=== PATIENT | female | born 1955 | race African-American/Black ===

== ENCOUNTER 2017-11-25 12:49 | Day surgery (SDC) | payer MEDICARE, MEDICAID ==
[2017-11-24 10:07] VITALS: BMI 54.9
--- NOTE | 2017-11-25 18:35 | OP ---
DATE OF PROCEDURE: 11/25/2017 PROCEDURE PERFORMED: Colonoscopy with biopsy. PREPROCEDURE DIAGNOSES: 1. History of ascending colon cancer, status post right colon resection in 12/2012. 2. Chronic diarrhea. POSTPROCEDURE DIAGNOSES: 1. Exam to ileocolonic anastomosis, good bowel preparation. 2. Mild diffuse diverticulosis coli. 3. Intact-appearing ileocolonic anastomosis with no evidence of tumor recurrence or polyps. 4. No obvious colitis, biopsies obtained in the transverse colon for histopathology. 5. Small internal hemorrhoids. 6. Otherwise normal colonoscopy. PROCEDURE IN DETAIL: Written informed consent was obtained. The patient was brought to the endoscop y suite. Total intravenous anesthesia was provided by Gustabo Eldridge CRNA. The patient was placed in the left lateral decubitus position. A digital rectal exam was performed that was unremarkable. A P entax video colonoscope was inserted through the anal canal and advanced under direct visualization t o the anastomosis. The quality of the bowel preparation was good. Each colon segment was examined c arefully as the colonoscope was slowly withdrawn from the anastomosis. Occasional diverticular orifi quincy were noted throughout the colon, with no evidence of bleeding or infection. The ileocolonic anas tomosis appeared intact with no evidence of tumor recurrence or polyp. No ulcer or friability was no margaret at the anastomosis. Random biopsies were obtained in the transverse colon for histology given th e patient's history of diarrhea. In the rectum, a retroflexed view demonstrated small internal hemor rhoids that were not actively bleeding. The colon was decompressed as the colonoscope was removed fr om the patient. She was transferred to the day stay surgery area for post-procedure monitoring. The re were no immediate complications. RECOMMENDATIONS: 1. Await pathology results. 2. Ask the patient to call me in 1 week for pathology results. 3. Resume Eliquis today. 4. Trial of cholestyramine, half a scoop in water q.a.m. as needed for diarrhea. 5. Follow up in GI clinic in 3-4 weeks. 6. Repeat colonoscopy in 2 years.
== END 2017-11-25 15:50 | disposition home or self-care (01) ==
LOC: SDC 12:49
PROVIDERS: ATTEND Internal Medicine Gastroenterology
PROC: 0DBL8ZX Excision of Transverse Colon, Via Natural or Artificial Opening Endoscopic, Diagnostic (ICD-10-PCS; principal; 2017-11-25)
DX: K57.30 Diverticulosis of large intestine without perforation or abscess without bleeding (principal); K64.8 Other hemorrhoids; K52.9 Noninfective gastroenteritis and colitis, unspecified; I48.91 Unspecified atrial fibrillation; E11.9 Type 2 diabetes mellitus without complications; G47.30 Sleep apnea, unspecified; J45.909 Unspecified asthma, uncomplicated; I10 Essential (primary) hypertension; G89.29 Other chronic pain; M54.9 Dorsalgia, unspecified; E66.01 Morbid (severe) obesity due to excess calories; Z68.42 Body mass index [BMI] 45.0-49.9, adult; Z87.891 Personal history of nicotine dependence; Z85.038 Personal history of other malignant neoplasm of large intestine; Z90.49 Acquired absence of other specified parts of digestive tract; Z79.01 Long term (current) use of anticoagulants; Z79.84 Long term (current) use of oral hypoglycemic drugs; Z79.899 Other long term (current) drug therapy; Z88.0 Allergy status to penicillin; Z91.040 Latex allergy status
CPT/HCPCS: 88305

== ENCOUNTER 2018-04-07 14:36 | Emergency (ER) | payer MEDICARE, MEDICAID ==
[2018-04-07 16:26] LABS: #Eosinphils 0.2 thou/uL (0.0-0.7); #Lymphocytes 2.3 thou/uL (1.20-3.40); #Monocytes 0.5 thou/uL (0.11-0.59); #Neutrophils 5.3 thou/uL (1.40-6.50); %Basophils 0.5 % (0.0-1.0); %Eosinophils 1.9 % (0.0-10.0); %Lymphocytes 27.2 % (21.0-51.0); %Monocytes 6.3 % (0.0-10.0); %Neutrophils 64.1 % (42.0-75.0); Hemoglobin 11.9 g/dL (12.0-16.0); Mean Corpuscular HGB CONC 32.2 g/dL (32.0-36.0); Mean Corpuscular Hemoglobin 28.9 pg (27.0-31.0); Mean Corpuscular Volume 89.7 fL (78.0-98.0); Mean Platelet Volume 9.8 fL (7.4-10.4); Platelet Count 183 thou/uL (130-400); RBC Distribution Width 13.8 % (11.5-14.5); Red Blood Cell (RBC) Count 4.11 mill/uL (4.20-5.40); White Blood Cell (WBC) Count 8.3 thou/uL (4.8-10.8)
--- NOTE | 2018-04-07 16:36 | RAD ---
PORTABLE CHEST: Date: 04/07/18 HISTORY: Chest pain. COMPARISON: 01/07/15. FINDINGS: Cardiomegaly. Mild vascular engorgement. Lung bases are poorly evaluated due to soft tissue attenuati on. The hemidiaphragms are not identified. I cannot exclude bibasilar infiltrates or consolidation. I cannot exclude effusions. IMPRESSION: Lung bases are poorly evaluated on this exam due to soft tissue attenuation. Recommend upright PA and lateral views of chest for better evaluation. POS: DANIELA
[2018-04-07 16:45] LABS: ALT (SGPT) 17 U/L (8-55); AST (SGOT) 11 U/L (5-34); Albumin 3.8 g/dL (3.4-4.8); Alkaline Phosphatase 124 U/L (40-150); Anion Gap 14 mmol/L (10-20); BUN (Urea Nitrogen) 14 mg/dL (9.8-20.1); Bilirubin, Total 0.5 mg/dL (0.2-1.2); Calc. Creatinine Clearance 0 mL/min (70-130); Calcium 9.1 mg/dL (7.8-10.44); Carbon Dioxide 24 mmol/L (23-31); Chloride 106 mmol/L (98-107); Estimated GFR-MDRD Greater than 90; Globulin 2.6 g/dL (2.4-3.5); Glucose 169 mg/dL (80-115); Lipase 37 U/L (8-78); Potassium 3.7 mmol/L (3.5-5.1); Protein, Total 6.4 g/dL (6.0-8.3); Sodium 140 mmol/L (136-145)
[2018-04-07 20:01] LABS: Troponin I Less than 0.010 ng/mL (< 0.028)
--- NOTE | 2018-04-09 21:59 | EKG ---
Test Reason : HIGH BP Blood Pressure : / mmHG Vent. Rate : 074 BPM Atrial Rate : 074 BPM P-R Int : 168 ms QRS Dur : 096 ms QT Int : 442 ms P-R-T Axes : 033 019 016 degrees QTc Int : 490 ms Poor data quality, interpretation may be adversely affected Normal sinus rhythm Prolonged QT Abnormal ECG Confirmed by JEEVAN GARCIAS DO ([id number]), manager editorial JOSEPH DIANE ([id number] on 04/09/2018 9:59:09 PM Referred By: KATERINE Confirmed By:JEEVAN GARCIAS DO
== END 2018-04-07 21:10 ==
LOC: ERS 14:36
DX: J45.901 Unspecified asthma with (acute) exacerbation (principal); I10 Essential (primary) hypertension; E11.9 Type 2 diabetes mellitus without complications; E66.9 Obesity, unspecified; Z79.899 Other long term (current) drug therapy; Z79.84 Long term (current) use of oral hypoglycemic drugs
CPT/HCPCS: 36415; 71045; 80053; 83690; 83880; 84484; 85025; 93005; 94640

== ENCOUNTER 2018-05-06 12:16 | Observation (INO) | payer MEDICARE, MEDICAID ==
[2018-05-06 13:01] LABS: #Eosinphils 0.1 thou/uL (0.0-0.7); #Lymphocytes 2.1 thou/uL (1.20-3.40); #Monocytes 0.3 thou/uL (0.11-0.59); #Neutrophils 4.6 thou/uL (1.40-6.50); %Basophils 0.2 % (0.0-1.0); %Eosinophils 1.6 % (0.0-10.0); %Lymphocytes 29.6 % (21.0-51.0); %Monocytes 4.7 % (0.0-10.0); Hemoglobin 13.2 g/dL (12.0-16.0); Mean Corpuscular HGB CONC 31.8 g/dL (32.0-36.0); Mean Corpuscular Hemoglobin 28.8 pg (27.0-31.0); Mean Corpuscular Volume 90.5 fL (78.0-98.0); Mean Platelet Volume 10.1 fL (7.4-10.4); Platelet Count 195 thou/uL (130-400); RBC Distribution Width 13.6 % (11.5-14.5); Red Blood Cell (RBC) Count 4.58 mill/uL (4.20-5.40); White Blood Cell (WBC) Count 7.1 thou/uL (4.8-10.8)
[2018-05-06] MEDS ORDERED: Aspirin Chewable 81 MG TAB ONE (13:01)
[2018-05-06] MEDS ORDERED: Nitroglycerin 2% Ointment 1 INCH/1 GM Packet ONE (13:01)
[2018-05-06 13:24] LABS: ALT (SGPT) 16 U/L (8-55); AST (SGOT) 13 U/L (5-34); Albumin 3.8 g/dL (3.4-4.8); Alkaline Phosphatase 140 U/L (40-150); Anion Gap 12 mmol/L (10-20); BUN (Urea Nitrogen) 10 mg/dL (9.8-20.1); Bilirubin, Total 0.5 mg/dL (0.2-1.2); Calc. Creatinine Clearance 0 mL/min (70-130); Calcium 9.4 mg/dL (7.8-10.44); Carbon Dioxide 24 mmol/L (23-31); Chloride 103 mmol/L (98-107); Estimated GFR-MDRD Greater than 90; Globulin 2.8 g/dL (2.4-3.5); Glucose 336 mg/dL (80-115); Lipase 27 U/L (8-78); Potassium 4.3 mmol/L (3.5-5.1); Protein, Total 6.6 g/dL (6.0-8.3); Sodium 135 mmol/L (136-145)
--- NOTE | 2018-05-06 13:56 | RAD ---
CHEST 1 VIEW: HISTORY: Chest pain. COMPARISON: 04/07/2018. FINDINGS: Cardiac silhouette is enlarged and upper limits of normal in size. Pulmonary vasculature is also upp er limits of normal. Mediastinum is midline with aortic calcification. No lobar consolidation or ev idence of pneumothorax. monitoring coordinator leads overlie the chest. IMPRESSION: Borderline cardiomegaly and pulmonary vascular congestion. Florid edema is not evident. Appearance has improved compared to the prior exam from 1 month ago. POS: DAVE
[2018-05-06] MEDS ORDERED: hydrALAZINE 20 MG/ML VIAL ONE (14:11)
[2018-05-06] MEDS ORDERED: Albuterol Sulfate 1.25 MG/3 ML NEB NEB PRN (15:00)
[2018-05-06 15:28] VITALS: BMI 53.1
[2018-05-06] MEDS ORDERED: Ondansetron PF 4 MG/2 ML Vial IVP PRN (15:52)
[2018-05-06] MEDS ORDERED: Ondansetron ODT 4 MG TAB SL PRN (15:52)
[2018-05-06] MEDS ORDERED: HumaLOG 300 UNITS/3 ML VIAL SC PRN (16:29)
[2018-05-06] MEDS ORDERED: Dextrose 50% Abboject 50 ML SYRINGE SLOW IVP PRN (16:29)
[2018-05-06] MEDS ORDERED: Dextrose 5% in Water 1,000 ML IV PRN (16:29)
[2018-05-06 17:15] LABS: Troponin I 0.014 ng/mL (< 0.028)
[2018-05-06] MEDS: HumaLOG 300 UNITS/3 ML VIAL SC PRN (17:15)
[2018-05-06] MEDS ORDERED: Ipratropium Bromide 2.5 ml Neb NEB PRN (19:00)
--- NOTE | 2018-05-06 19:27 | HP ---
PRIMARY CARE PHYSICIAN: Dr. Blu Casillas. CHIEF COMPLAINT: Chest pain. HISTORY OF PRESENT ILLNESS: Ms. Moraes is a pleasant 62-year-old female with a past medical history of diabetes mellitus; asthma; colon cancer, status post partial colectomy; atrial fibrillation; hypertension, who had presented to [facility] and accompanied by her after she had experienced chest pain that has been going on for the last 2 to 3 days. She states that she was scheduled for a tooth extraction today, therefore was placed on antibiotics last Wednesday and was told to hold her home dose of Eliquis for 5 days. She states that she was started on clindamycin by her dentist last Wednesday, she states chest pain started this week around Wednesday night. Due to her symptoms, she states that her dentist stopped clindamycin and switched to cephalexin. However, her chest pain continued. She states that this pain is pretty consistent. She also reports some shortness of breath more than usual. She states that she had recently seen her transit operations supervisor, Dr. Cardenas, and had undergone a stress test. However, she was not able to tell me the stress test results. She states that Dr. Cardenas told her that everything was stable and no further changes. Upon arriving to the emergency department, her initial workup included labs, CBC, BMP, which were found to be unremarkable. Glucose was found to be elevated at 336, however, troponin less than 0.010 and BNP 24.3. Lipase is normal at 27. She had been noted to be in normal sinus rhythm with heart rate of 81 with unifocal premature ventricular complexes. Chest x-ray shows cardiomegaly, mild congestive heart failure along with some chronic changes. Her blood pressure was noted to be elevated at 198/76, however, this was treated with IV hydralazine 20 mg. She was given oral aspirin 325 mg and topical nitro transdermal patch. She states that her chest pain had not changed. However, her blood pressure improved. It was determined that she would be admitted for her chest pain and hypertension. Under observation, Cardiology Services were consulted for further evaluation to seek medical records from her recent stress test. REVIEW OF SYSTEMS: CONSTITUTIONAL: She denies any fever or chills. Denies any night sweats, any recent weight loss or weight gain. HEENT: She does report a mild headache after nitro; however, denies any dizziness, sore throat, runny nose, or neck pain. PULMONARY: Does report some shortness of breath more than usual; however, denies any wheezing or cough. CARDIOVASCULAR: Does report some chest pain; however, denies any palpitations. GASTROINTESTINAL: Denies any abdominal pain, but does report some nausea with no vomiting. She also does report some chronic diarrhea that she has had since her history of colon cancer and partial colectomy. She states she follows up with saw sharpener as outpatient. GENITOURINARY: Denies any urinary frequency, urgency, or hematuria. NEUROLOGIC: Denies any focal weakness, numbness, or tingling. PSYCHIATRIC: Denies any anxiety or depression. Denies any suicidal or homicidal ideation. PAST MEDICAL HISTORY: Significant for asthma, diabetes mellitus type 2, hyperlipidemia, hypertension, atrial fibrillation, and colon cancer. PAST SURGICAL HISTORY: She has had a hysterectomy, cholecystectomy, bilateral tubal ligation, and partial colectomy. ALLERGIES: PENICILLIN. SOCIAL HISTORY: She denies alcohol, tobacco, or illicit drug use. HOME MEDICATIONS: At this time: 1. Clonidine 0.1 mg p.o. b.i.d. 2. Tudorza 400 mcg inhalation daily. 3. Hydrocodone/acetaminophen ([place]) 7.5/325 mg one tablet p.o. q.6 hours p.r.n. pain. 4. Losartan 50 mg p.o. daily. 5. Isosorbide 60 mg p.o. daily. 6. Albuterol 1.25 mg nebulizer q.8 hours as needed shortness of breath. 7. Dexilant 60 mg p.o. daily. 8. Januvia 100 mg p.o. daily. 9. Lorazepam 100 mg p.o. at bedtime as needed for insomnia. 10. Apixaban 5 mg p.o. b.i.d. currently on hold for oral surgery. 11. Diltiazem 120 mg p.o. b.i.d. 12. Metformin 1000 mg p.o. daily. 13. Doxazosin 1 mg p.o. daily. 14. Amlodipine 5 mg p.o. daily. 15. Atorvastatin 20 mg p.o. daily. 16. Furosemide 40 mg p.o. daily. PHYSICAL EXAMINATION: VITAL SIGNS: Blood pressure 138/67, pulse 108, respirations 18, temperature 98.1 degrees Fahrenheit, O2 saturation 98% on room air. GENERAL: The patient is awake, alert, oriented, in mild acute distress noted due to chest pain. HEENT: Atraumatic, normocephalic. Pupils are round and reactive to light. Extraocular muscles intact. Oropharynx is clear without any erythema or exudates. Moist mucous membranes noted. NECK: Soft and supple. No adenopathy. No bruits. Trachea midline. LUNGS: Clear to auscultation bilaterally. No wheezing, rales, or rhonchi. CARDIOVASCULAR: Positive S1 and S2. Regular rate and rhythm. No murmurs, clicks, or rubs. ABDOMEN: Obese, soft. No tenderness to palpation. Nondistended. Bowel sounds present. EXTREMITIES: Trace edema. Strength 5+ bilaterally in upper and lower extremities. Pedal and radial pulses palpable. NEUROLOGIC: Cranial nerves 2 through 12 intact. No focal deficits noted. Gait not assessed. PSYCHIATRIC: Good mood and affect. LABORATORY DATA: WBC 7.1, RBC 4.58, hemoglobin 13.2, platelets 195. Sodium 135, potassium 4.3, anion gap 12, BUN 10, creatinine 0.76, estimated GFR greater than 90, glucose 336. Troponin less than 0.010. BNP 24.3. Lipase 27. DIAGNOSTIC IMAGING: Chest x-ray showed borderline cardiomegaly with pulmonary vascular congestion. It was noted that the appearance has improved compared to the prior exam from 1 month ago. ASSESSMENT AND PLAN: 1. Chest pain. We will consult Cardiology Services and obtain records of recent cardiac workup, which included stress test. Trend cardiac enzymes, continue on the patient's home regimen. We will place on Lovenox for anticoagulation at this time. We will make the patient n.p.o. at midnight for possible further workup in the a.m. per Cardiology. This also could likely be secondary to gastritis or worsening gastroesophageal reflux disease from recent clindamycin use, will place on IV Protonix twice daily. 2. Hypertension. Continue on the patient's home regimen. Add IV hydralazine for elevated systolic blood pressure greater than 170. Monitor vital signs closely. 3. Diabetes mellitus. Continue on inpatient regimen. Hold the patient's home metformin and place on insulin sliding scale with frequent Accu-Cheks. 4. Asthma likely causing her shortness of breath. We will place the patient on home regimen including DuoNeb treatments. 5. Hyperlipidemia. Continue home regimen. 6. History of partial colectomy and chronic diarrhea. The patient currently at baseline; however, we will closely monitor for any changes. 7. Deep venous thrombosis and gastrointestinal prophylaxis as above. 8. Code status is full code. DISPOSITION: Pending further workup and clinical findings. We will discuss case with Cardiology and obtain recent records of stress test. We will monitor patient overnight and further management pending her progress. Job ID: [id number]
[2018-05-06 20:17] LABS: Troponin I Less than 0.010 ng/mL (< 0.028)
[2018-05-06] MEDS: cloNIDine 0.1 MG TAB PO SCH (20:22)
[2018-05-06] MEDS: Acetaminophen 325 MG TAB PO PRN (20:23)
[2018-05-06] MEDS: Lorazepam 1 MG TAB PO PRN (20:27)
[2018-05-06] MEDS: Pantoprazole 40 MG VIAL IVP SCH (20:31)
[2018-05-07 05:04] LABS: #Eosinphils 0.2 thou/uL (0.0-0.7); #Lymphocytes 2.1 thou/uL (1.20-3.40); #Monocytes 0.5 thou/uL (0.11-0.59); #Neutrophils 3.8 thou/uL (1.40-6.50); %Basophils 0.3 % (0.0-1.0); %Eosinophils 2.5 % (0.0-10.0); %Lymphocytes 32.6 % (21.0-51.0); %Neutrophils 57.6 % (42.0-75.0); Mean Corpuscular HGB CONC 31.6 g/dL (32.0-36.0); Mean Corpuscular Hemoglobin 28.5 pg (27.0-31.0); Mean Corpuscular Volume 90.1 fL (78.0-98.0); Mean Platelet Volume 9.8 fL (7.4-10.4); Platelet Count 186 thou/uL (130-400); RBC Distribution Width 13.7 % (11.5-14.5); White Blood Cell (WBC) Count 6.5 thou/uL (4.8-10.8)
[2018-05-07 05:23] LABS: Anion Gap 13 mmol/L (10-20); BUN (Urea Nitrogen) 16 mg/dL (9.8-20.1); Calc. Creatinine Clearance 180 mL/min (70-130); Carbon Dioxide 24 mmol/L (23-31); Chloride 104 mmol/L (98-107); Estimated GFR-MDRD Greater than 90; Glucose 267 mg/dL (80-115); Sodium 137 mmol/L (136-145)
[2018-05-07] MEDS: Ondansetron ODT 4 MG TAB SL PRN ×3 (05:25→15:19)
[2018-05-07] MEDS: HumaLOG 300 UNITS/3 ML VIAL SC PRN (06:30)
[2018-05-07] MEDS: HYDROcodone/Acetaminophen 7.5/325 mg Tablet PO PRN ×2 (06:32→23:55)
[2018-05-07] MEDS ORDERED: metFORMIN 500 MG TAB PO SCH (09:00)
[2018-05-07] MEDS: Pantoprazole 40 MG VIAL IVP SCH ×2 (09:31→20:28)
--- NOTE | 2018-05-07 09:42 | PDOC.PN ---
- Subjective Encounter Start Date: 05/07/18 Encounter Start Time: 09:37 Patient lying in bed with at bedside. She denies chest pain and is not complaining of abdominal pain. She became nauseous after she ate breakfast that improved after zofran. She also reports itchign and discharge and believes she is developing a yeast infection. Cardiology records were reviewed, she had a stress test in 11/2017 which did not show any ischemia, EF 47%. Heart cath on 2017 showed EF 60% with normal coronaries. Troponin negative - Objective Resuscitation Status - Order Detail: 05/06/18 16:26 Resuscitation Status Routine Co-Sign Provider: Resuscitation Status: FULL: Full Resuscitation MAR Reviewed: Yes Vital Signs & Weight: Vital Signs (12 hours) Temp Pulse Resp BP Pulse Ox 05/07/18 07:05 98.9 F 75 20 146/81 H 94 L 05/07/18 04:25 98.3 F 76 18 127/58 L 93 L Weight Weight 300 lb 6 oz I&O: 05/06/18 05/07/18 05/08/18 06:59 06:59 06:59 Intake Total 300 Output Total 500 Balance -200 Result Diagrams: 05/07/18 04:24 05/07/18 04:24 Additional Labs: Accuchecks 05/07/18 05/06/18 05/06/18 06:19 20:29 16:59 POC Glucose 265 H 320 H 245 H Radiology Reviewed by me: Yes Phys Exam - Physical Examination Mild acute distress due to abdominal pain and nausea HEENT: PERRLA, moist MMs, oral pharynx no lesions Neck: no nodes, full ROM Respiratory: no wheezing, clear to auscultation bilateral Cardiovascular: RRR, no significant murmur Gastrointestinal: soft, positive bowel sounds Tenderness in left UQ Musculoskeletal: pulses present Neurological: non-focal, moves all 4 limbs Lymphatic: no nodes Psychiatric: normal affect, A&O x 3 Skin: no rash, cap refill <2 seconds Dx/Plan (1) Nausea Code(s): R11.0 - NAUSEA Status: Acute (2) Obesity, morbid, BMI 50 or higher Code(s): E66.01 - MORBID (SEVERE) OBESITY DUE TO EXCESS CALORIES Status: Acute (3) Type 2 diabetes mellitus Status: Acute (4) Asthma Code(s): J45.909 - UNSPECIFIED ASTHMA, UNCOMPLICATED Status: Chronic (5) Dyslipidemia Code(s): E78.5 - HYPERLIPIDEMIA, UNSPECIFIED Status: Chronic (6) Abdominal pain Code(s): R10.9 - UNSPECIFIED ABDOMINAL PAIN Status: Acute - Plan cont current plan of care, plan discussed w/ family, DVT proph w/lovenox * Continue PPI BID * Consult to GI Dr Perdomo * Cardiology records reviewed, Troponin negative x3, no further cardiac workup at this time * Continue home medications * Add diflucan * Continue zofran as needed
[2018-05-07] MEDS ORDERED: Fluconazole 100 MG TAB PO SCH (10:00)
[2018-05-07] MEDS: Enoxaparin Sodium 40 MG/0.4 ML SYRINGE SC SCH (11:27)
[2018-05-07] MEDS: Atorvastatin Calcium 20 MG TAB PO SCH (11:28)
[2018-05-07] MEDS: cloNIDine 0.1 MG TAB PO SCH ×2 (11:28→20:25)
[2018-05-07] MEDS: Furosemide 40 MG TAB PO SCH (11:28)
[2018-05-07] MEDS: Amlodipine 5 MG TAB PO SCH (11:28)
[2018-05-07] MEDS: Alogliptin 25 MG TAB PO SCH (11:28)
[2018-05-07] MEDS: Losartan 25 MG TAB PO SCH (11:29)
[2018-05-07] MEDS: Doxazosin Mesylate 1 MG TAB PO SCH (11:29)
--- NOTE | 2018-05-07 16:55 | CON ---
DATE OF CONSULTATION: 05/07/2018 CHIEF COMPLAINT: Chest pain and nausea. HISTORY OF PRESENT ILLNESS: Ms. Moraes is a 62-year-old woman, who started clindamycin in anticipation of getting her tooth pulled. She started that medication last Wednesday a week ago. Wednesday, she developed substernal cramping to pressure-like chest pain that radiated towards the left chest and the left upper quadrant. She then developed persistent nausea with that. She had no vomiting, but every time she eats, she gets nauseated. She has still been unable to keep food down. The pain does not significantly worsen with eating. She has had no hematemesis. No blood in the stool. She has had diarrhea with liquidy stools a couple times per day after meals. She had been worked up for diarrhea recently by Dr. Rivera and was started on cholestyramine with improvement. She has not been taking the cholestyramine since this pain started. She had a 2nd antibiotic earlier in the week, which I believe was cephalexin. She did notice to have some complaints of vaginal yeast infection this morning. She has been on Eliquis for history of atrial fibrillation. Her last dose was a week ago in anticipation of getting her tooth pulled. She never did make it to get her tooth pulled yesterday because she was admitted to the hospital instead with the chest pain. She has been on Dexilant 60 mg daily and has not had much heartburn otherwise on that medication. The chest pain has been worse at night when she lies down and will come and go, but can last for hours at a time. The nausea has been more persistent. Again, she has had no vomiting. PAST MEDICAL HISTORY: 1. Colon cancer status post right colon resection. 2. Asthma. 3. Diabetes mellitus, type 2. 4. Hyperlipidemia. 5. Hypertension. PAST SURGICAL HISTORY: 1. Right colon resection. 2. Hysterectomy. 3. Cholecystectomy. 4. Tubal ligation. FAMILY HISTORY: Negative for GI malignancies. SOCIAL HISTORY: No alcohol, tobacco, or drugs. ALLERGIES: PENICILLIN. MEDICATIONS: Currently as an inpatient, include; 1. Alogliptin. 2. Norvasc. 3. Lipitor. 4. Catapres. 5. Diltiazem. 6. Doxazosin. 7. Enoxaparin. 8. Furosemide. 9. Isosorbide mononitrate. 10. Losartan. 11. Pantoprazole 40 mg IV q.12 h. REVIEW OF SYSTEMS: Negative x10 systems reviewed except as stated in history of present illness. PHYSICAL EXAMINATION: VITAL SIGNS: Temperature is 97.4, pulse 75, and blood pressure 165/79. GENERAL: She is in no acute distress. Alert and oriented x3. She is obese. HEENT: Eyes have no scleral icterus. Oropharynx is clear without lesions. No cervical or supraclavicular lymphadenopathy. LUNGS: Clear to auscultation bilaterally. HEART: Regular rate and rhythm without murmur. ABDOMEN: Soft. She does not have significant tenderness to palpation; however, palpation in the epigastric region worsens her nausea. Her bowel sounds are present. EXTREMITIES: No lower extremity edema. LABORATORY DATA: White blood cell count 6.5, hemoglobin is 12.0, and platelets 186. INR 1.0. Creatinine 0.68, bilirubin 0.5, AST 13, ALT 16, alkaline phosphatase 140, albumin 3.8, and lipase 27. IMPRESSION: 1. Substernal to left-sided chest pain to left upper quadrant abdominal pain. This is associated with persistent nausea. This could be gastritis or peptic ulcer or reflux esophagitis; however, she has been on Dexilant 60 mg daily. These symptoms started after she started a course of clindamycin and it is possible that she has pill esophagitis or fungal esophagitis; however, she does not have true odynophagia. 2. History of atrial fibrillation, on Eliquis. Her last Eliquis dose was one week ago. RECOMMENDATIONS: 1. Continue proton pump inhibitor. 2. We will plan upper endoscopy tomorrow. Job ID: [id number]
[2018-05-07] MEDS: Acetaminophen 325 MG TAB PO PRN (20:26)
[2018-05-07] MEDS: Lorazepam 1 MG TAB PO PRN (23:55)
[2018-05-08 06:07] LABS: #Basophils 0.1 thou/uL (0.0-0.2); #Eosinphils 0.2 thou/uL (0.0-0.7); #Lymphocytes 2.2 thou/uL (1.20-3.40); #Monocytes 0.5 thou/uL (0.11-0.59); #Neutrophils 3.4 thou/uL (1.40-6.50); %Basophils 1.1 % (0.0-1.0); %Eosinophils 3.2 % (0.0-10.0); %Lymphocytes 34.6 % (21.0-51.0); %Monocytes 7.7 % (0.0-10.0); %Neutrophils 53.3 % (42.0-75.0); Hemoglobin 11.8 g/dL (12.0-16.0); Mean Corpuscular Hemoglobin 29.7 pg (27.0-31.0); Mean Corpuscular Volume 89.9 fL (78.0-98.0); Mean Platelet Volume 9.9 fL (7.4-10.4); Platelet Count 189 thou/uL (130-400); RBC Distribution Width 13.6 % (11.5-14.5); Red Blood Cell (RBC) Count 3.97 mill/uL (4.20-5.40); White Blood Cell (WBC) Count 6.4 thou/uL (4.8-10.8)
[2018-05-08 06:27] LABS: Anion Gap 11 mmol/L (10-20); BUN (Urea Nitrogen) 16 mg/dL (9.8-20.1); Calc. Creatinine Clearance 163 mL/min (70-130); Calcium 9.1 mg/dL (7.8-10.44); Carbon Dioxide 27 mmol/L (23-31); Chloride 103 mmol/L (98-107); Estimated GFR-MDRD Greater than 90; Glucose 258 mg/dL (80-115); Potassium 4.2 mmol/L (3.5-5.1); Sodium 137 mmol/L (136-145)
[2018-05-08] MEDS ORDERED: Fentanyl 100 MCG/2 ML VIAL ONE (10:38)
--- NOTE | 2018-05-08 12:46 | OP ---
DATE OF PROCEDURE: 05/08/2018 PROCEDURE PERFORMED: Esophagogastroduodenoscopy. PREOPERATIVE DIAGNOSES: Substernal to left-sided chest pain with nausea and some epigastric pain. DESCRIPTION OF PROCEDURE: Informed consent was obtained from the patient. She was sedated with total intravenous anesthesia. The bite block was placed and the endoscope was advanced easily to the second portion of the duodenum and retroflexion was performed in the stomach. The esophagus was normal. The Z-line was normal. There was a small 1 cm hiatal hernia from 40 to 39 cm. The stomach was normal including retroflexed views. The pylorus and first and second portions of the duodenum were normal. IMPRESSION: 1. Small 1 cm hiatal hernia. 2. Otherwise normal esophagogastroduodenoscopy. There was no pill esophagitis or fungal esophagitis or peptic ulcer to explain her symptoms. She might have just had an acute infectious gastroenteritis or viral gastroenteritis. Her liver tests and pancreatic enzymes were normal. We will proceed with symptomatic supportive care for now. RECOMMENDATIONS: 1. Proton pump inhibitor. 2. Advance diet. Job ID: [id number]
[2018-05-08] MEDS: Pantoprazole 40 MG VIAL IVP SCH (13:30)
[2018-05-08] MEDS: Atorvastatin Calcium 20 MG TAB PO SCH (13:30)
[2018-05-08] MEDS: cloNIDine 0.1 MG TAB PO SCH (13:30)
[2018-05-08] MEDS: Amlodipine 5 MG TAB PO SCH (13:30)
[2018-05-08] MEDS: Furosemide 40 MG TAB PO SCH (13:30)
[2018-05-08] MEDS: Enoxaparin Sodium 40 MG/0.4 ML SYRINGE SC SCH (13:30)
[2018-05-08] MEDS: Losartan 25 MG TAB PO SCH (13:30)
[2018-05-08] MEDS: Alogliptin 25 MG TAB PO SCH (14:14)
[2018-05-08] MEDS: Doxazosin Mesylate 1 MG TAB PO SCH (14:14)
[2018-05-08 16:18] VITALS: BP 121/60; TEMP 97.6
[2018-05-08] MEDS ORDERED: PROPOFOL 200 MG/20 ML VIAL ONE (16:18)
[2018-05-08] MEDS ORDERED: Lidocaine 1% PF 5 ML VIAL ONE (16:18)
== END 2018-05-08 16:38 | disposition home or self-care (01) ==
LOC: ERS 12:16 → 2SW 14:00
PROVIDERS: ADMIT Internal Medicine; ATTEND Internal Medicine
PROC: 0DJ08ZZ Inspection of Upper Intestinal Tract, Via Natural or Artificial Opening Endoscopic (ICD-10-PCS; principal; 2018-05-08)
DX: R07.89 Other chest pain (principal); K44.9 Diaphragmatic hernia without obstruction or gangrene; J45.909 Unspecified asthma, uncomplicated; I48.91 Unspecified atrial fibrillation; I11.0 Hypertensive heart disease with heart failure; I50.9 Heart failure, unspecified; E78.5 Hyperlipidemia, unspecified; K52.9 Noninfective gastroenteritis and colitis, unspecified; E66.01 Morbid (severe) obesity due to excess calories; Z68.43 Body mass index [BMI] 50.0-59.9, adult; Z85.038 Personal history of other malignant neoplasm of large intestine; Z79.01 Long term (current) use of anticoagulants; Z79.84 Long term (current) use of oral hypoglycemic drugs; Z79.899 Other long term (current) drug therapy; Z88.0 Allergy status to penicillin; Z90.49 Acquired absence of other specified parts of digestive tract
CPT/HCPCS: 43235; 71045; 80048 ×2; 80053; 82962 ×3; 83690; 83880; 84484 ×2; 85025 ×3; 93005; 94640; 96372 ×2; 96374; 96375; 96376; 97139 ×2; 99285; G0378 ×2; 36415; 36416; C9113; J0360; J1650; J2001; J2704; J3010; Q0162

== ENCOUNTER 2019-11-26 17:53 | Inpatient (IN) | payer MEDICARE, MEDICAID, OTHER ==
--- NOTE | 2019-11-26 19:04 | RAD ---
PORTABLE CHEST: Date: 11-26-2019 PROVIDED CLINICAL HISTORY: Chest pain. FINDINGS: Comparison is made with a study dated 05-06-2018. Cardiac and mediastinal silhouette is unchanged in appearance. No focal consolidation, pleural fluid or pneumothorax apparent. Evaluation is limited by patient body habitus. Vascular calcification is ag ain seen. IMPRESSION: No evidence for an acute cardiopulmonary process. POS: CARMITA
[2019-11-26 19:16] LABS: #Basophils 0.1 thou/uL (0.0-0.2); #Eosinphils 0.2 thou/uL (0.0-0.7); #Monocytes 0.6 thou/uL (0.11-0.59); #Neutrophils 3.5 thou/uL (1.40-6.50); %Basophils 1.1 % (0.0-1.0); %Eosinophils 2.7 % (0.0-10.0); %Lymphocytes 40.5 % (21.0-51.0); %Monocytes 7.7 % (0.0-10.0); Mean Corpuscular HGB CONC 33.3 g/dL (32.0-36.0); Mean Corpuscular Hemoglobin 30.2 pg (27.0-31.0); Mean Corpuscular Volume 90.7 fL (78.0-98.0); Mean Platelet Volume 9.6 fL (7.4-10.4); Platelet Count 202 thou/uL (130-400); RBC Distribution Width 14.4 % (11.5-14.5); Red Blood Cell (RBC) Count 4.32 mill/uL (4.20-5.40); White Blood Cell (WBC) Count 7.4 thou/uL (4.8-10.8)
[2019-11-26 19:37] LABS: ALT (SGPT) 21 U/L (8-55); AST (SGOT) 13 U/L (5-34); Albumin 3.8 g/dL (3.4-4.8); Alkaline Phosphatase 108 U/L (40-110); Anion Gap 13 mmol/L (10-20); BUN (Urea Nitrogen) 14 mg/dL (9.8-20.1); Bilirubin, Total 0.5 mg/dL (0.2-1.2); CK (CPK) 44 U/L (29-168); Calc. Creatinine Clearance 0 mL/min (70-130); Calcium 9.4 mg/dL (7.8-10.44); Carbon Dioxide 24 mmol/L (23-31); Chloride 105 mmol/L (98-107); Estimated GFR-MDRD Greater than 90; Globulin 2.6 g/dL (2.4-3.5); Glucose 199 mg/dL (80-115); Potassium 3.6 mmol/L (3.5-5.1); Protein, Total 6.4 g/dL (6.0-8.3); Sodium 138 mmol/L (136-145)
--- NOTE | 2019-11-26 20:12 | PDOC.HHP ---
Hospitalist HPI - History of Present Illness Chest pain History of Present Illness: PCP: Karen The patient is a 49-year-old female with a past medical history significant for CAD, hypertension, hyperlipidemia, diabetes type 2, atrial fibrillation (on Eliquis), and GERD that presents to the ER for the above complaint. Patient reports the development of chest pain over the past 2 days. Pain is located substernally, radiates to the neck and left upper extremity, described as pressure, exacerbated with exertion, relieved by nothing. She reports associated intermittent shortness of breath and diaphoresis. She denies any heart palpitations or lower extremity swelling. She denies any fevers. She has a history of asthma, but denies any recent wheezing or cough. She has no history of DVT or PE. She denies any illicit drug use. ED Course: VITAL SIGNS [place] Nov 26, 2019 17:55 CINDY Figueroa Jennifer BP: 153/65, Pulse: 93, Resp: 21, Temp: 98.7 (Oral), Pain: 6, O2 sat: 97 on ( Room Air), Time: 11/26/2019 17:55. VITAL SIGNS [place] Nov 26, 2019 18:23 CINDY Guzman Madison Brooke BP: 180/83, Pulse: 87, Resp: 20, Pain: 6, O2 sat: 99ra, Time: 11/26/2019 18:23. VITAL SIGNS [place] Nov 26, 2019 19:30 CINDY Guzman Madison Brooke BP: 182/78, MAP: 112, Pulse: 80, Resp: 18, Pain: 0, O2 sat: 97 on (Room Air), Time: 11/26/2019 19:30. Medications administered: Full dose aspirin. Hospitalist ROS - Review of Systems Constitutional: denies: fever, chills Respiratory: reports: SOB with excertion. denies: cough, hemoptysis, pleuritic pain, sputum, wheezing Cardiovascular: reports: chest pain. denies: palpitations, paroxysmal noc. dyspnea, edema, light headedness Gastrointestinal: denies: nausea, vomiting, abdominal pain, diarrhea, constipation Genitourinary: denies: dysuria, frequency, hematuria Musculoskeletal: reports: neck pain, arm pain (Left) Skin: denies: rash, bruising Neurological: denies: weakness, numbness, change in speech, confusion All other systems reviewed; all pertinent +/- noted in HPI/Subj - Medication Medications: cloNIDine HCl TABLET : Strength - 0.1 mg : ORAL Patient Dose: 1 tab(s) Oral 2 times a day. losartan TABLET : Strength - 50 mg : ORAL Patient Dose: 2 tab(s) Oral once a day. Dexilant CAPSULE, DELAYED RELEASE, BIPHASIC : Strength - 60 mg : ORAL Patient Dose: 1 cap(s) Oral once a day. isosorbide mononitrate TABLET, EXTENDED RELEASE 24 HR : Strength - 60 mg : ORAL Patient Dose: 1 tab(s) Oral once a day. metFORMIN TABLET : Strength - 500 mg : ORAL Patient Dose: 500 mg Oral 2 times a day (before meals). doxazosin TABLET : Strength - 1 mg : ORAL Patient Dose: 1 mg Oral once a day. Eliquis TABLET : Strength - 5 mg : ORAL Patient Dose: 5 mg Oral 2 times a day. Lasix oral TABLET : Strength - 40 mg : ORAL Patient Dose: 40 mg Oral once a day. Probiotic 10 billion cell capsule CAPSULE : Strength - 10 billion cell : ORAL Patient Dose: UNK. atorvastatin TABLET : Strength - 20 mg : ORAL Patient Dose: 20 mg Oral once a day. Diltia XT CAPSULE, EXTENDED-RELEASE DEGRADABLE : Strength - 240 mg : ORAL Patient Dose: 240 mg Oral 2 times a day. amLODIPine besylate (bulk) POWDER (GRAM) : Strength - 100 % : MISCELLANEOUS Patient Dose: 5mg po daily. Allergies: Penicillins Hospitalist History - Past Medical History Source: patient, RN notes reviewed Other Medical History: MEDICAL HISTORY Past medical history includes cardiac history, unspecified arrhythmia, Past medical history includes history of hypertension, Past medical history includes history of obesity, Past medical history includes pulmonary disease, asthma, DIABETES 2. "IMMUNE SYSTEM IS LOW". GERD FEMALE SURGICAL HISTORY Surgical history of cholecystectomy, Surgical history of hysterectomy, MASS IN COLON REMOVED 12/2012. PSYCHIATRIC HISTORY Psychiatric history includes, depression, no history of suicidal ideations, No history of homicidal ideations, No previous psychiatric history. SOCIAL HISTORY Patient has former smoking history, quit > 30 years ago, Patient denies alcohol use, Patient denies drug use. Lives with family, retired. Ambulates without assistive devices. FAMILY HISTORY Family history is contributory for cardiac and diabetes (mother). - Exam General Appearance: NAD, awake alert Eye: PERRL, anicteric sclera ENT: normocephalic atraumatic Neck: supple, symmetric, no JVD Heart: RRR, no murmur, no gallops, no rubs, normal peripheral pulses Respiratory: CTAB, no wheezes, no rales, no ronchi, normal chest expansion, no tachypnea Gastrointestinal: soft, non-tender, normal bowel sounds, no bruit, no guarding, no rigidity Extremities: no cyanosis, no clubbing, no edema Skin: no lesions, no rashes Neurological: normal sensation to touch, no weakness, no focal deficits Musculoskeletal: normal tone, normal strength Psychiatric: normal affect, A&O x 3 Hospitalist Results - Labs Result Diagrams: 11/26/19 18:57 11/26/19 18:57 Lab results: WBC 7.4 thou/uL (4.8-10.8) 11/26/19 18:57 Hgb 13.0 g/dL (12.0-16.0) 11/26/19 18:57 Hct 39.1 % (36.0-47.0) 11/26/19 18:57 MCV 90.7 fL (78.0-98.0) 11/26/19 18:57 Plt Count 202 thou/uL (130-400) 11/26/19 18:57 Neutrophils % 48.0 % (42.0-75.0) 11/26/19 18:57 Sodium 138 mmol/L (136-145) 11/26/19 18:57 Potassium 3.6 mmol/L (3.5-5.1) 11/26/19 18:57 Chloride 105 mmol/L (98-107) 11/26/19 18:57 Carbon Dioxide 24 mmol/L (23-31) 11/26/19 18:57 BUN 14 mg/dL (9.8-20.1) 11/26/19 18:57 Creatinine 0.68 mg/dL (0.6-1.1) 11/26/19 18:57 Glucose 199 mg/dL (80-115) H 11/26/19 18:57 Calcium 9.4 mg/dL (7.8-10.44) 11/26/19 18:57 Total Bilirubin 0.5 mg/dL (0.2-1.2) 11/26/19 18:57 AST 13 U/L (5-34) 11/26/19 18:57 ALT 21 U/L (8-55) 11/26/19 18:57 Alkaline Phosphatase 108 U/L (40-110) 11/26/19 18:57 Creatine Kinase 44 U/L (29-168) 11/26/19 18:57 Troponin I 0.014 ng/mL (< 0.028) 11/26/19 18:57 Serum Total Protein 6.4 g/dL (6.0-8.3) 11/26/19 18:57 Albumin 3.8 g/dL (3.4-4.8) 11/26/19 18:57 - EKG Interpretation EK lead EKG shows normal sinus rhythm, Rate (beats per minute): 82, with no ectopics, Conduction normal, ST segments normal, [place] normal, LVH with nonspecific T wave abnormalities. - Radiology Interpretation Chest x-ray Status: report reviewed by ut Hospitalist H&P A/P - Problem (1) Chest pain Code(s): R07.9 - CHEST PAIN, UNSPECIFIED Status: Acute Assessment and Plan: Admit to the telemetry floor, observation status. Expected length of stay less than 2 midnights. EKG normal sinus rhythm, LVH, T wave abnormalities. Chest x- ray negative for acute process. Initial troponin negative. Heart score of 7. Wells PE score 0. Trend troponins, check BNP, mag level and UA. Continue aspirin. Consult cardiology. Hold Eliquis. Obtain PT/INR. Patient had fasted lipid profile and TSH in August. (2) HTN (hypertension) Code(s): I10 - ESSENTIAL (PRIMARY) HYPERTENSION Status: Chronic Assessment and Plan: Restart patient's home medications: Clonidine, isosorbide mononitrate, Lasix, Norvasc, losartan, diltiazem, doxazosin. Continue to monitor blood pressure. (3) HLD (hyperlipidemia) Code(s): E78.5 - HYPERLIPIDEMIA, UNSPECIFIED Status: Chronic Assessment and Plan: Patient had fasted lipid profile in August 2019. Restart patient's atorvastatin. (4) Atrial fibrillation Code(s): I48.91 - UNSPECIFIED ATRIAL FIBRILLATION Status: Chronic Assessment and Plan: History of paroxysmal A. fib. Currently sinus rhythm. Takes Eliquis at home. Will hold Eliquis tonight, in case patient has cardiac catheterization. (5) DMII (diabetes mellitus, type 2) Status: Chronic Assessment and Plan: Patient takes metformin and Bydureon. Will hold both medications. Will start moderate sliding scale. Accu-Cheks AC at bedtime. (6) GERD (gastroesophageal reflux disease) Code(s): K21.9 - GASTRO-ESOPHAGEAL REFLUX DISEASE WITHOUT ESOPHAGITIS Status: Chronic Assessment and Plan: Patient takes Dexilant. Will start Protonix. - Plan Plan: SCDs for DVT prophylaxis. Protonix for GI prophylaxis. Full code. Medical contact is her son Anastacio at [phone]. Discussed case with Dr. Rye.
[2019-11-26] MEDS ORDERED: Acetaminophen 650 MG Suppository PR PRN (20:43)
[2019-11-26] MEDS ORDERED: Ondansetron ODT 4 MG TAB PO PRN (20:43)
[2019-11-26] MEDS ORDERED: Calcium Carbonate 500 MG ChewTAB PO PRN (20:43)
[2019-11-26] MEDS ORDERED: Ondansetron PF 4 MG/2 ML Vial IVP PRN (20:43)
[2019-11-26] MEDS ORDERED: Senokot S 8.6-50 MG TAB PO PRN (20:43)
[2019-11-26] MEDS ORDERED: Aspirin Chewable 81 MG TAB ONE (20:49)
[2019-11-26] MEDS ORDERED: Nitroglycerin 0.4 MG TAB (25 Tab Bottle) PO PRN (20:50)
[2019-11-26] MEDS ORDERED: HumaLOG 300 UNITS/3 ML VIAL SC PRN (20:57)
[2019-11-26] MEDS ORDERED: Dextrose 50% Abboject 50 ML SYRINGE SLOW IVP PRN (20:57)
[2019-11-26] MEDS ORDERED: Dextrose 5% in Water 1,000 ML IV PRN (20:57)
[2019-11-26] MEDS ORDERED: Lorazepam 1 MG TAB PO PRN (21:44)
[2019-11-26] MEDS ORDERED: Magnesium 2 GM/50 ML 2 GM in Premix Bag 1 BAG IVPB SCH (22:00)
[2019-11-26 22:02] LABS: PTT 26.6 sec (22.9-36.1); Prothrombin Time 13.5 sec (12.0-14.7)
[2019-11-26 22:05] VITALS: BMI 52.4
[2019-11-26 22:30] LABS: Troponin I 0.016 ng/mL (< 0.028)
[2019-11-26] MEDS ORDERED: cloNIDine 0.1 MG TAB PO SCH (22:30)
[2019-11-26] MEDS: HumaLOG 300 UNITS/3 ML VIAL SC PRN (23:12)
[2019-11-26] MEDS ORDERED: Sodium Chloride 0.9% 1,000 ML IV SCH (23:59)
[2019-11-27 01:25] LABS: Troponin I 0.016 ng/mL (< 0.028)
[2019-11-27] MEDS: Acetaminophen 325 MG TAB PO PRN ×2 (05:04→23:44)
[2019-11-27 05:18] LABS: #Eosinphils 0.3 thou/uL (0.0-0.7); #Lymphocytes 2.4 thou/uL (1.20-3.40); #Monocytes 0.4 thou/uL (0.11-0.59); %Basophils 0.4 % (0.0-1.0); %Eosinophils 4.4 % (0.0-10.0); %Lymphocytes 39.5 % (21.0-51.0); %Monocytes 7.3 % (0.0-10.0); %Neutrophils 48.4 % (42.0-75.0); Hemoglobin 11.9 g/dL (12.0-16.0); Mean Corpuscular HGB CONC 32.2 g/dL (32.0-36.0); Mean Corpuscular Hemoglobin 28.9 pg (27.0-31.0); Mean Corpuscular Volume 89.8 fL (78.0-98.0); Mean Platelet Volume 9.8 fL (7.4-10.4); Platelet Count 193 thou/uL (130-400); RBC Distribution Width 14.4 % (11.5-14.5); Red Blood Cell (RBC) Count 4.12 mill/uL (4.20-5.40); White Blood Cell (WBC) Count 6.1 thou/uL (4.8-10.8)
[2019-11-27 05:39] LABS: Anion Gap 10 mmol/L (10-20); BUN (Urea Nitrogen) 12 mg/dL (9.8-20.1); Calc. Creatinine Clearance 216 mL/min (70-130); Calcium 8.8 mg/dL (7.8-10.44); Carbon Dioxide 26 mmol/L (23-31); Cardiac Risk 1.9 (Less than 4.5); Chloride 106 mmol/L (98-107); Cholesterol 100 mg/dl (< 200 Desired); Estimated GFR-MDRD Greater than 90; Glucose 147 mg/dL (80-115); HDL Cholesterol 54 mg/dL (>60 Neg Risk); LDL Cholesterol, Calculated 36 mg/dL; Potassium 3.5 mmol/L (3.5-5.1); Sodium 138 mmol/L (136-145); Triglycerides 50 mg/dL (Less than 150)
[2019-11-27] MEDS: HYDROcodone/Acetaminophen 10/325 mg Tablet PO PRN (05:47)
[2019-11-27] MEDS ORDERED: Non-Formulary Item 1 EACH (Butalb/Acetaminophen/Caffeine [Butalb-Acetamin-Caff 50-325-40] PO PRN (07:44)
[2019-11-27] MEDS: Amlodipine 5 MG TAB PO SCH (08:01)
[2019-11-27] MEDS: Losartan 25 MG TAB PO SCH (08:02)
[2019-11-27] MEDS: Furosemide 40 MG TAB PO SCH (08:02)
[2019-11-27] MEDS: Atorvastatin Calcium 20 MG TAB PO SCH (08:04)
[2019-11-27] MEDS: Doxazosin Mesylate 1 MG TAB PO SCH (08:05)
[2019-11-27] MEDS: Fioricet 325/50/40 mg Tablet PO PRN ×2 (08:09→21:12)
[2019-11-27] MEDS ORDERED: cloNIDine 0.1 MG TAB PO SCH ×3 (09:00→09:30)
[2019-11-27] MEDS ORDERED: Aspirin 81 mg Enteric Coated Tablet PO SCH (09:00)
[2019-11-27] MEDS: Apixaban 5 MG TAB PO SCH ×2 (10:03→19:38)
[2019-11-27 10:32] LABS: Bacteria/HPF None Seen HPF (None Seen); Bilirubin Negative (Negative); Blood, Urine Negative (Negative); Clarity Clear (Clear); Glucose, Urine (Dipstick) 50 mg/dL (Negative); Ketone, Urine Negative (Negative); Leukocyte 75 Leu/uL (Negative); Nitrite Negative (Negative); Protein, Urine (Dipstick) 10 mg/dL (Neg-Trace); RBC/HPF 0-3 HPF (0-3); Specific Gravity, Urine 1.029 (1.002-1.036); Urobilinogen Normal mg/dL (Less than 2); WBC/HPF 0-3 HPF (0-3); pH, Urine 5.5 (5.0-9.0)
[2019-11-27] MEDS ORDERED: Promethazine 25 MG TAB PO PRN (10:55)
--- NOTE | 2019-11-27 11:04 | CON ---
DATE OF CONSULTATION: HISTORY OF PRESENT ILLNESS: The patient is a pleasant 64-year-old woman, who presents with headaches and chest discomfort. The patient has a history of hypertension, diabetes mellitus, and paroxysmal atrial fibrillation. The patient was seen initially in 2003 with chest pain. She underwent a cardiac catheterization. She was found to have normal left ventricular systolic function with normal coronary arteries. The patient subsequently has developed paroxysmal atrial fibrillation, is on chronic anticoagulation therapy. In 2018, the patient presented with recurrent chest discomfort. She underwent a repeat cardiac catheterization, which revealed normal left ventricular ejection fraction of 60 % with normal coronary arteries. The patient was in her usual state of health when Wednesday, she developed a severe headache. She went to the local emergency room. She underwent apparently a CT scan, which was unremarkable. The patient states she has continued to have a headache for the past week. She states she has felt some numbness on her left side. The patient a few days later developed substernal chest discomfort that radiated to her shoulder and down her arm. This had been persistent for the past four days. The patient was noted to be hypertensive in the emergency room. The patient states that her chest pain has subsequently resolve. She continues to have a headache. She denies any weakness in her extremities. PAST MEDICAL HISTORY: 1. Hypertension. 2. Diabetes mellitus. 3. Morbid obesity. 4. Asthma. 5. Depression. 6. Thyroid disorder. PAST SURGICAL HISTORY: Hysterectomy, and cholecystectomy. SOCIAL HISTORY: Nonsmoker. FAMILY HISTORY: Positive family history of coronary artery disease. ALLERGIES: PENICILLIN. MEDICATIONS: See nursing list. REVIEW OF SYSTEMS: Ten-point system otherwise unremarkable. No history of any fever or chills. PHYSICAL EXAMINATION: GENERAL: Obese woman, in no acute distress. VITAL SIGNS: Blood pressure 196/92. NECK: No jugular venous distention. LUNGS: Clear to auscultation. HEART: Regular rate and rhythm. Normal S1 and S2. No murmurs. ABDOMEN: Distended. EXTREMITIES: Show no edema. VASCULAR: Radial pulses 2+. NEUROLOGIC: Nonfocal. LABORATORY DATA: Sodium 138, potassium 3.5, chloride 106, bicarbonate 26, BUN 12, creatinine 0.56, and glucose 147. White blood cell count 6.1, hemoglobin 11.9, hematocrit 37.0, and platelets were 193. IMAGING DATA: EKG normal sinus rhythm with left ventricular hypertrophy. IMPRESSION: 1. Headaches, new onset. 2. Chest pain, atypical. 3. Paroxysmal atrial fibrillation. 4. Malignant hypertension. 5. Diabetes mellitus. 6. Asthma. 7. Depression. 8. Morbid obesity. PLAN: This patient presents with persistent new-onset headaches, which began a week ago. The patient's neurologic exam is nonfocal. We would recommend an MRI scan to make sure there is no evidence of any subarachnoid bleeding. We will increase the dose of the patient's clonidine. The patient's cardiac enzymes revealed no evidence of myocardial infarction. EKG is unremarkable. We would recommend outpatient stress testing. We will increase the dose of her clonidine. We will follow this patient with you through her hospitalization. Job ID: [id number] MTDD
[2019-11-27 12:02] LABS: SARS-CoV-2 MS2 Positive; SARS-CoV-2 N Gene Negative; SARS-CoV-2 S Gene Negative; SARS-CoV-2 by NAA Not Detected (NotDetected); SARS-CoV-2 orf1ab Negative
--- NOTE | 2019-11-27 12:04 | CT ---
Exam: CT brain PROVIDED CLINICAL HISTORY: Headache COMPARISON: 11/18/2019 FINDINGS: The ventricular system is normal in size and morphology. No evidence for intracranial hemorrhage or mass effect. The extracranial soft tissues and osseous structures demonstrate no evidence for an acute abnormality. IMPRESSION: No evidence for intracranial hemorrhage or mass effect.
[2019-11-27] MEDS ORDERED: Metoclopramide HCl 10 MG/2 ML VIAL IVP SCH (17:15)
[2019-11-27] MEDS ORDERED: Ketorolac Tromethamine 30 MG/ML VIAL IVP SCH (17:15)
[2019-11-27] MEDS ORDERED: diphenhydrAMINE 50 MG/ML VIAL IVP SCH (17:15)
[2019-11-27] MEDS ORDERED: Dihydroergotamine Mesylate 1 MG/ML AMP SLOW IVP SCH (19:30)
[2019-11-27] MEDS: cloNIDine 0.2 MG TAB PO SCH (19:38)
[2019-11-27] MEDS: HumaLOG 300 UNITS/3 ML VIAL SC PRN (21:13)
--- NOTE | 2019-11-27 21:41 | PDOC.HOSPP ---
- Subjective Encounter Date: 11/27/19 Encounter Time: 11:00 Subjective: Patient seen and examined for chest discomfort along with intractable headache. Chest discomfort resolved. Continues to have intractable headache with mild photophobia. No new focal deficit. No visual deficit reported. - Objective Vital Signs & Weight: Vital Signs (12 hours) Temp Pulse Resp BP BP Pulse Ox 11/27/19 19:38 65 135/65 11/27/19 19:29 97.6 F 65 18 109/56 L 98 11/27/19 17:20 64 18 135/61 97 11/27/19 11:07 97.7 F 77 17 137/77 99 11/27/19 10:06 68 142/65 H Weight Weight 305 lb 9.6 oz I&O: 11/26/19 11/27/19 11/28/19 06:59 06:59 06:59 Intake Total 1099 Output Total 800 350 Balance 299 -350 Result Diagrams: 11/27/19 04:58 11/27/19 04:58 Additional Labs: Accuchecks 11/27/19 11/27/19 11/27/19 20:29 17:31 12:51 POC Glucose 235 H 148 H 146 H 11/26/19 21:57 POC Glucose 283 H Radiology Reviewed by me: Yes (CT brain last week was negative) EKG Reviewed by me: Yes (Sinus rhythm on development analyst) Hospitalist ROS - Review of Systems Respiratory: denies: cough, dry, shortness of breath, hemoptysis, SOB with excertion, pleuritic pain, sputum, wheezing, other Cardiovascular: denies: chest pain, palpitations, orthopnea, paroxysmal noc. dyspnea, edema, light headedness, other - Medication Medications: Active Medications Generic Name Dose Route Start Last Admin Trade Name Freq PRN Reason Stop Dose Admin Acetaminophen 650 mg 11/26/19 20:43 11/27/19 05:04 Tylenol PO 650 mg Q4H PRN Administration Headache/Fever/Mild Pain (1-3) Acetaminophen/Butalbital/Caffeine 1 tab 11/27/19 07:56 11/27/19 21:12 Fioricet PO 12/02/19 07:57 1 tab Q6H PRN Administration HEADACHE Hydrocodone Bitart/Acetaminophen 1 tab 11/26/19 23:50 11/27/19 05:47 [place] 10/325 PO 1 tab TIDPRN PRN Administration Moderate Pain (4-6) Amlodipine Besylate 5 mg 11/27/19 09:00 11/27/19 08:01 Norvasc PO 5 mg DAILY KRISTINA Administration Apixaban 5 mg 11/27/19 09:00 11/27/19 19:38 Eliquis PO 5 mg BID KRISTINA Administration Atorvastatin Calcium 20 mg 11/27/19 09:00 11/27/19 08:04 Lipitor PO 20 mg DAILY KRISTINA Administration Clonidine 0.2 mg 11/27/19 21:00 11/27/19 19:38 Catapres PO Not Given BID KRISTINA Diltiazem HCl 240 mg 11/27/19 09:00 11/27/19 19:38 Cardizem Cd PO 240 mg BID KRISTINA Administration Doxazosin Mesylate 1 mg 11/27/19 09:00 11/27/19 08:05 Cardura PO 1 mg DAILY KRISTINA Administration Furosemide 40 mg 11/27/19 09:00 11/27/19 08:02 Lasix PO 40 mg DAILY KRISTINA Administration Insulin Human Lispro 0 units 11/26/19 20:57 11/27/19 21:13 Humalog SC 2 units .BEDTIME SLIDING SC PRN Administration Bedtime Correctional Scale Isosorbide Mononitrate 60 mg 11/27/19 09:00 11/27/19 10:02 Imdur PO 60 mg DAILY [facility] Administration Losartan Potassium 100 mg 11/27/19 09:00 11/27/19 08:02 Cozaar PO 100 mg DAILY KRISTINA Administration Ondansetron HCl 4 mg 11/26/19 20:43 11/27/19 05:48 Zofran Odt PO 4 mg Q6H PRN Administration Nausea/Vomiting Pantoprazole Sodium 40 mg 11/27/19 07:30 11/27/19 08:03 Protonix PO 40 mg DAILY-AC KRISTINA Administration - Exam General Appearance: NAD Neck: supple, no JVD Heart: RRR, no gallops, no rubs, normal peripheral pulses Respiratory: no wheezes, no rales, no ronchi, normal chest expansion Gastrointestinal: soft, non-tender, non-distended, normal bowel sounds Extremities: no cyanosis, no clubbing Neurological: cranial nerve grossly intact, normal sensation to touch, no focal deficits, no new deficit Psychiatric: normal affect, A&O x 3 Hosp A/P - Plan Chest discomfortacute coronary syndrome ruled out Intractable headachesuspected migraine Morbid obesity with a BMI 52.5 Chronic atrial fibrillation on anticoagulation Diabetes mellitus type II Hyperlipidemia GERD Chronic pain syndrome Hypertension Plan: Cardiology input appreciated. Cardiac workup as outpatient. Due to persistent headache will repeat CT brain without contrast. If headache is persistent will consult neurology. Continue sliding scale. Clonidine dose was increased. Magnesium has been replaced. Will discontinue IV fluids. Continue anticoagulation. Continue other medications as above. Updatedue to persistent headache neurology was consulted. Patient was started on migraine protocol with [facility].
--- NOTE | 2019-11-27 23:53 | CON ---
DATE OF CONSULTATION: 11/27/2019 CONSULTING PHYSICIAN: Hospitalist Services. IMPRESSION: Migraine headache. PLAN: Migraine protocol is ordered. HISTORY OF PRESENT ILLNESS: Ms. Moraes is a 64-year-old black female with a past history of hypertension, diabetes, and atrial fibrillation. She has been on chronic anticoagulation. She developed a headache a bit over a week ago. The pain started on the left side and radiates to the orbit, it is associated with some nausea, dizziness, and slight blurred vision. She is not having any visual aura. She tried Fioricet, which only dulled the intensity of the headache. Dcjo-lpc-kbyjhpy medications were not helping. She has had a CT of the brain done, which was unremarkable. PAST MEDICAL HISTORY: As listed above. ALLERGIES: PENICILLIN. SOCIAL HISTORY: No tobacco or drug use. FAMILY HISTORY: Noncontributory. MEDICATIONS: List was reviewed. REVIEW OF SYSTEMS: Ten-system review of systems is otherwise negative. PHYSICAL EXAMINATION: GENERAL: She is an overweight, middle-aged woman, in mild distress. VITAL SIGNS: Stable. She is afebrile. HEENT: Pupils equal and reactive. Conjunctivae clear. Oropharynx clear. NECK: Supple. EXTREMITIES: No cyanosis or edema. SKIN: Clear. NEUROLOGIC: She is alert and appropriate. Her speech is fluent and clear. Cranial nerves are intact. There is no cranial tenderness present. There are no focal deficits present. No abnormal movements were seen. LABORATORY DATA: EKG shows a sinus rhythm. SUMMARY: This is a middle-aged woman with a persistent hemicranial headache and nothing remarkable on her imaging. I suspect that this is a migraine. I will begin treatment with the routine migraine protocol. She to this. I would switch to the Jacky protocol. Job ID: [id number]
[2019-11-28 05:14] VITALS: TEMP 97.7
[2019-11-28] MEDS: HYDROcodone/Acetaminophen 10/325 mg Tablet PO PRN (05:16)
[2019-11-28 08:02] VITALS: BP 125/60
[2019-11-28] MEDS: Doxazosin Mesylate 1 MG TAB PO SCH (08:46)
[2019-11-28] MEDS: Losartan 25 MG TAB PO SCH (08:46)
[2019-11-28] MEDS: Atorvastatin Calcium 20 MG TAB PO SCH (08:47)
[2019-11-28] MEDS: Amlodipine 5 MG TAB PO SCH (08:47)
[2019-11-28] MEDS: Apixaban 5 MG TAB PO SCH (08:47)
[2019-11-28] MEDS: Furosemide 40 MG TAB PO SCH (08:47)
[2019-11-28] MEDS: cloNIDine 0.2 MG TAB PO SCH (08:48)
--- NOTE | 2019-11-28 12:23 | DIS ---
DATE OF ADMISSION: 11/27/2019 DATE OF DISCHARGE: 11/28/2019 DISCHARGE DISPOSITION: Home. FOLLOWUP: 1. Follow up with Dr. Navya Morrell in 1 week. 2. Follow up with Neurology, Dr. Hercules in 1 to 2 weeks. 3. Follow up with Cardiology in 1 to 2 weeks. The patient was evaluated on the day of discharge. Denies any new complaints. Headache has significantly improved. DISCHARGE MEDICATIONS: Clonidine was increased to 0.2 mg b.i.d. Cardizem was reduced to 240 mg daily. All other home medications were left unchanged. BRIEF HOSPITAL COURSE: The patient is a 64-year-old female with coronary artery disease; hypertension; diabetes mellitus type 2; and atrial fibrillation, on anticoagulation, presented to the emergency room with chest discomfort. Please refer to the history and physical for further details. The patient was admitted to the hospital with a diagnosis of chest discomfort, rule out acute coronary syndrome. Serial troponins remained negative. The patient was evaluated by Cardiology, Dr. Shankar Cardenas. Dr. Shankar Cardenas recommended further cardiac workup as outpatient since the patient was complaining of intractable headache. The headache has been ongoing for more than a week. She was also evaluated in the emergency room approximately week ago, where she had a negative CT brain. An MRI was ordered by Cardiology. However, due to body habitus, this could not be done. Repeat CT brain was done instead that was negative for acute findings. Due to persistent headaches, the patient was evaluated by Neurology, Dr. Hercules. She was started on migraine protocol. Headache is significantly improved overnight. She was advised to follow up with Neurology as outpatient. She has been cleared by consultants for discharge. There were some medication changes made by Dr. Cardenas as discussed above. FINAL DIAGNOSES: 1. Chest discomfort, acute coronary syndrome ruled out. 2. Intractable headache due to migraine, improved. 3. Morbid obesity with a BMI of 52.5. 4. Hypertension. 5. Chronic atrial fibrillation, on anticoagulation. 6. Diabetes mellitus type 2. 7. Hyperlipidemia. 8. Gastroesophageal reflux disease. 9. Chronic pain syndrome. 10. Hypertension. The patient understands the above plan of care. Job ID: [id number]
== END 2019-11-28 11:35 | disposition home or self-care (01) | DRG 103 ==
LOC: ERS 17:53 → 2SW 20:33 → OBSVTOIN 11-27 17:34
PROVIDERS: ADMIT Internal Medicine; ATTEND Internal Medicine
DX: G43.909 Migraine, unspecified, not intractable, without status migrainosus (principal); Z68.43 Body mass index [BMI] 50.0-59.9, adult; R07.9 Chest pain, unspecified; I10 Essential (primary) hypertension; E78.5 Hyperlipidemia, unspecified; E11.9 Type 2 diabetes mellitus without complications; F32.9 Major depressive disorder, single episode, unspecified; I48.0 Paroxysmal atrial fibrillation; K21.9 Gastro-esophageal reflux disease without esophagitis; E66.01 Morbid (severe) obesity due to excess calories; I25.10 Atherosclerotic heart disease of native coronary artery without angina pectoris; J45.909 Unspecified asthma, uncomplicated; G89.4 Chronic pain syndrome; Z79.84 Long term (current) use of oral hypoglycemic drugs; Z79.01 Long term (current) use of anticoagulants; Z90.49 Acquired absence of other specified parts of digestive tract; Z90.710 Acquired absence of both cervix and uterus; Z88.0 Allergy status to penicillin; Z79.899 Other long term (current) drug therapy
CPT/HCPCS: 36415; 36416; 70450; 71045; 80048; 80053; 80061; 81001; 82550; 83735; 83880; 84443; 84484; 85025; 85610; 85730; 87635; 93005; 94760; 96361; 96365; 96375; G0378; J1110; J1200; J1885; J2765; J3475; Q0162; U0003

== ENCOUNTER 2019-12-11 06:51 | Outpatient (CLI) | payer MEDICARE, MEDICAID, OTHER ==
[2019-12-12 13:01] LABS: SARS-CoV-2 MS2 Positive; SARS-CoV-2 N Gene Negative; SARS-CoV-2 S Gene Negative; SARS-CoV-2 by NAA Not Detected (NotDetected); SARS-CoV-2 orf1ab Negative
== END 2019-12-11 06:52 | disposition home or self-care (01) ==
LOC: LABBT 06:51
PROVIDERS: ATTEND Internal Medicine Gastroenterology
DX: C18.2 Malignant neoplasm of ascending colon (principal); K52.9 Noninfective gastroenteritis and colitis, unspecified; D84.9 Immunodeficiency, unspecified; K21.9 Gastro-esophageal reflux disease without esophagitis; E66.01 Morbid (severe) obesity due to excess calories; Z68.42 Body mass index [BMI] 45.0-49.9, adult; Z20.828 Contact with and (suspected) exposure to other viral communicable diseases
CPT/HCPCS: 87635; U0003

== ENCOUNTER 2019-12-14 10:45 | Day surgery (SDC) | payer MEDICARE, MEDICAID ==
[2019-12-13 11:06] VITALS: BMI 51.0
[2019-12-14] MEDS ORDERED: PROPOFOL 200 MG/20 ML VIAL ONE (10:55)
[2019-12-14] MEDS ORDERED: Lidocaine 1% PF 5 ML VIAL ONE (10:55)
--- NOTE | 2019-12-14 17:23 | OP ---
DATE OF PROCEDURE: 12/14/2019 TITLE OF PROCEDURE: Colonoscopy with biopsy. PREPROCEDURE DIAGNOSES: 1. Chronic diarrhea. 2. History of ascending colon cancer with last colonoscopy performed in October 2017. POSTPROCEDURE DIAGNOSES: 1. Exam to anastomosis, good bowel preparation. 2. Diffuse diverticulosis coli. 3. No obvious colitis, biopsied. 4. Small internal hemorrhoids. 5. Otherwise normal colonoscopy. PROCEDURE IN DETAIL: Written informed consent was obtained. The patient was brought to the endoscopy suite. Total intravenous anesthesia was administered by Mr. Giuseppe Nielsen CRNA. The patient was placed in the left lateral decubitus position. A digital rectal exam was performed that was unremarkable. A Pentax video colonoscope was inserted through the anal canal and advanced under direct visualization to the ileocolic anastomosis. The quality of the bowel preparation was good. Endoscopic findings revealed an intact appearing anastomosis. A small portion of the ileum was identified and examined and appeared normal. No ulcer, friability, or polyp was noted at the anastomosis. Frequent diverticular orifices were noted throughout the colon. There was no evidence of diverticulitis or diverticular bleeding. The colonic mucosa appeared grossly normal. Biopsies were obtained in the transverse and descending colon for histology. A retroflexed exam in the rectum demonstrated small internal hemorrhoids. No polyps were seen during the exam. The colon was decompressed as the colonoscope was completely removed from the patient. There were no immediate complications. She was transferred to the Day Stay surgery area for postprocedure monitoring. RECOMMENDATIONS: 1. Await biopsy results. 2. Ask the patient to call me in one week for biopsy results. 3. Resume previous diet and medications. 4. Continue Imodium or cholestyramine 1 to 2 times daily as needed for diarrhea. 5. Repeat colonoscopy in two years. 6. Follow up with me in the clinic in 6 to 8 weeks. Job ID: [id number]
== END 2019-12-14 13:56 | disposition home or self-care (01) ==
LOC: SDC 10:45
PROVIDERS: ATTEND Internal Medicine Gastroenterology
PROC: 0DBM8ZX Excision of Descending Colon, Via Natural or Artificial Opening Endoscopic, Diagnostic (ICD-10-PCS; principal; 2019-12-14)
PROC: 0DBL8ZX Excision of Transverse Colon, Via Natural or Artificial Opening Endoscopic, Diagnostic (ICD-10-PCS; 2019-12-14)
DX: K52.9 Noninfective gastroenteritis and colitis, unspecified (principal); K57.30 Diverticulosis of large intestine without perforation or abscess without bleeding; K64.8 Other hemorrhoids; K59.00 Constipation, unspecified; K21.9 Gastro-esophageal reflux disease without esophagitis; D81.9 Combined immunodeficiency, unspecified; G47.33 Obstructive sleep apnea (adult) (pediatric); I10 Essential (primary) hypertension; E11.9 Type 2 diabetes mellitus without complications; M19.90 Unspecified osteoarthritis, unspecified site; E66.01 Morbid (severe) obesity due to excess calories; Z68.43 Body mass index [BMI] 50.0-59.9, adult; Z85.038 Personal history of other malignant neoplasm of large intestine; Z87.891 Personal history of nicotine dependence; Z79.01 Long term (current) use of anticoagulants; Z79.84 Long term (current) use of oral hypoglycemic drugs; Z79.899 Other long term (current) drug therapy; Z88.0 Allergy status to penicillin; Z91.040 Latex allergy status; Z90.49 Acquired absence of other specified parts of digestive tract
CPT/HCPCS: 88305; J2704

== ENCOUNTER 2022-01-14 10:41 | Day surgery (SDC) | payer MEDICARE, OTHER ==
[2022-01-13 14:03] VITALS: BMI 47.9
[2022-01-14] MEDS ORDERED: PROPOFOL 200 MG/20 ML VIAL ONE (12:06)
== END 2022-01-14 13:22 | disposition home or self-care (01) ==
LOC: SDC 10:41
PROVIDERS: ATTEND Internal Medicine Gastroenterology
PROC: 0DBL8ZX Excision of Transverse Colon, Via Natural or Artificial Opening Endoscopic, Diagnostic (ICD-10-PCS; principal; 2022-01-14)
DX: K59.00 Constipation, unspecified (principal); K57.30 Diverticulosis of large intestine without perforation or abscess without bleeding; K64.8 Other hemorrhoids; I10 Essential (primary) hypertension; E11.9 Type 2 diabetes mellitus without complications; K21.9 Gastro-esophageal reflux disease without esophagitis; M19.90 Unspecified osteoarthritis, unspecified site; Z85.038 Personal history of other malignant neoplasm of large intestine; Z79.01 Long term (current) use of anticoagulants; Z79.84 Long term (current) use of oral hypoglycemic drugs; Z79.899 Other long term (current) drug therapy; Z88.0 Allergy status to penicillin; Z91.040 Latex allergy status; Z90.49 Acquired absence of other specified parts of digestive tract
CPT/HCPCS: 88305; J2704

== ENCOUNTER 2022-05-22 11:32 | Outpatient (CLI) | payer MEDICARE, OTHER | END 2022-05-22 11:33 | disposition home or self-care (01) | LOC: BICCT 11:32 | PROVIDERS: ATTEND Internal Medicine | DX: R05.3 Chronic cough (principal); R91.1 Solitary pulmonary nodule; D35.01 Benign neoplasm of right adrenal gland | CPT/HCPCS: 71250 ==

== ENCOUNTER 2023-05-14 09:17 | Outpatient (CLI) | payer MEDICARE, OTHER | END 2023-05-14 09:18 | disposition home or self-care (01) | LOC: RAD 09:17 | PROVIDERS: ATTEND Internal Medicine | DX: R06.00 Dyspnea, unspecified (principal); I51.7 Cardiomegaly | CPT/HCPCS: 71046 ==

== ENCOUNTER 2024-12-14 10:24 | Outpatient (CLI) | payer OTHER | END 2024-12-14 10:25 | disposition home or self-care (01) | LOC: LABBT 10:24 | PROVIDERS: ATTEND Internal Medicine Cardiovascular Disease | DX: Z01.810 Encounter for preprocedural cardiovascular examination (principal); I48.0 Paroxysmal atrial fibrillation | CPT/HCPCS: 93005; 93010 ==